=== PATIENT | female | born 1990 | race American Indian/Alaskan Native ===

== ENCOUNTER 2017-05-12 12:49 | Emergency (ER) | payer MEDICAID ==
[2017-05-12] MEDS ORDERED: MOTRIN PO ONE (16:47)
--- NOTE | 2017-05-12 16:48 | Emergency Department Report ---
Abscess Boil HPI - HPI Chief Complaint: Skin/Abscess/Foreign Body Stated Complaint: BUMP ON BUTTOCKS Time Seen by Provider: 05/12/17 16:32 Duration: 3 Days Location: Other (buttock) Severity: Moderate History: Yes Pain, Yes Purulent Drainage, No Fever, No Numbness, No Foreign Body , No Previous History, No Insect Bite HPI: 26-year-old female past medical history none presents with complaint of left buttock abscess for 3-4 days. Denies fever, chills. she states she has seen swelling and redness of her skin on her left buttock. Denies any other symptoms. Denies any difficulty defecating no nausea or vomiting. Home Medications: Previous Rx's Medication Instructions Recorded Last Taken Type Nitrofurantoin [place]/M-Cryst 100 mg PO Q12HR #10 capsule 06/02/15 Unknown Rx [Macrobid] Phenazopyridine HCl [Pyridium] 200 mg PO TID #6 tablet 06/02/15 Unknown Rx metroNIDAZOLE [Flagyl TAB] 500 mg PO BID #14 tablet 06/02/15 Unknown Rx Ibuprofen [Motrin] 600 mg PO Q8H PRN #30 tablet 05/12/17 Unknown Rx Sulfamethoxazole/Trimethoprim 1 each PO BID #14 tablet 05/12/17 Unknown Rx [Bactrim DS TAB] Allergies/Adverse Reactions: Allergies Allergy/AdvReac Type Severity Reaction Status Date / Time No Known Allergies Allergy Unverified 06/02/15 12:46 ED Review of Systems ROS: Stated complaint: BUMP ON BUTTOCKS Other details as noted in HPI Constitutional: denies: chills, fever Eyes: denies: eye pain, eye discharge, vision change ENT: denies: ear pain, throat pain Respiratory: denies: cough, shortness of breath, wheezing Cardiovascular: denies: chest pain, palpitations Endocrine: no symptoms reported Gastrointestinal: denies: abdominal pain, nausea, diarrhea Genitourinary: denies: urgency, dysuria, discharge Musculoskeletal: denies: back pain, joint swelling, arthralgia Skin: denies: rash, lesions Neurological: denies: headache, weakness, paresthesias Psychiatric: denies: anxiety, depression Hematological/Lymphatic: denies: easy bleeding, easy bruising ED Past Medical Hx - Past Medical History Previous Medical History?: No - Surgical History Past Surgical History?: No - Social History Smoking Status: Current Every Day Smoker Substance Use Type: Non Opiate Pain - Medications Home Medications: Home Medications Medication Instructions Recorded Confirmed Last Taken Type Nitrofurantoin [place]/M-Cryst 100 mg PO Q12HR #10 capsule 06/02/15 Unknown Rx [Macrobid] Phenazopyridine HCl [Pyridium] 200 mg PO TID #6 tablet 06/02/15 Unknown Rx metroNIDAZOLE [Flagyl TAB] 500 mg PO BID #14 tablet 06/02/15 Unknown Rx Ibuprofen [Motrin] 600 mg PO Q8H PRN #30 tablet 05/12/17 Unknown Rx Sulfamethoxazole/Trimethoprim 1 each PO BID #14 tablet 05/12/17 Unknown Rx [Bactrim DS TAB] ED Abscess Boil Physical Exam - Exam General: Vital signs noted. No distress. Alert and acting appropriately. Size: 3 cm Exam: No Tenderness, No Fluctuance, No Surrounding Cellulites/Erythema, No Lymphangitis, No Crepitation, No Heart Murmur, No Normal Neurologic Exam, No Normal Circulation I & D Note - I & D Note I & D Note: Simple stab incision made at head of abscess. Area infiltrated with lidocaine 1% with epinephrine local anesthesia achieved, mild. Drainage from site no gauze inserted covered with 2 x 2 gauze. Minimal bleeding procedure tolerated well ED Course Vital Signs 05/12/17 14:10 Temperature 97.8 F Pulse Rate 72 Respiratory 18 Rate Blood Pressure 116/75 O2 Sat by Pulse 100 Oximetry Critical care attestation.: If time is entered above; I have spent that time in minutes in the direct care of this critically ill patient, excluding procedure time. ED Medical Decision Making - Medical Decision Making A/P: Left buttock abscess with mild surrounding cellulitis 1-borders marked, approximately 6 cm in diameter 2-abcsess incised and drained, wound culture sent 3-Motrin 600 when necessary, Bactrim short course 4-advised patient to return if abscess re-accumulates if she experiences fever chills difficulty defecating any perirectal pain any nausea or vomiting. No rectal or anal involvement on clinical exam, abscess and cellulitis in left mid buttock region ED Disposition Clinical Impression: Abscess of buttock, left Disposition: DC-01 TO HOME OR SELFCARE Is pt being admited?: No Does the pt Need Aspirin: No Condition: Stable Instructions: Abscess (ED), Abscess Incision and Drainage (ED) Prescriptions: Ibuprofen [Motrin] 600 mg PO Q8H PRN #30 tablet PRN Reason: Pain Sulfamethoxazole/Trimethoprim [Bactrim DS TAB] 1 each PO BID #14 tablet Referrals: [facility] [Outside] - 3-5 Days [facility] [Outside] - 3-5 Days Forms: Work/School Release Form(ED) Time of Disposition: 17:38
[2017-05-12 18:06] VITALS: BP 122/68
== END 2017-05-12 18:04 | disposition home or self-care (01) ==
LOC: ED 12:49
DX: L02.31 Cutaneous abscess of buttock (principal); F17.200 Nicotine dependence, unspecified, uncomplicated
CPT/HCPCS: 87076; 87116; 87186

== ENCOUNTER 2019-06-27 19:47 | Outpatient (CLI) | payer OTHER ==
[2019-06-27 22:43] VITALS: BP 116/62
== END 2019-06-27 22:30 | disposition home or self-care (01) ==
LOC: TRG 19:47
PROVIDERS: ATTEND Obstetrics & Gynecology
DX: O47.03 False labor before 37 completed weeks of gestation, third trimester (principal); Z3A.37 37 weeks gestation of pregnancy

== ENCOUNTER 2019-06-28 17:33 | Inpatient (IN) | payer OTHER ==
[2019-06-28] MEDS ORDERED: PITOCin/NS 20 UNIT/1000ML DRIP 40,000 MILLIUNITS/2,000 ML BAG IV ONE (17:42)
[2019-06-28] MEDS ORDERED: PITOCin/NS 20 UNIT/1000ML DRIP 20,000 MILLIUNITS/1,000 ML BAG IV ONE (17:56)
--- NOTE | 2019-06-28 18:21 | History and Physical Report ---
History of Present Illness Date of examination: 06/28/19 Chief complaint: Labor History of present illness: Pt is a 28yo BF EDC 07/12/19; EGA 38 0/7 weeks presents to L&D complaining of RUC's q 3-4 mins and dilated 8cms. She received care at [facility] since 11 weeks and course has been unremarkable. records are available and GBS is Negative. Past History Past Medical History: no pertinent history Past Surgical History: no surgical history Social history: no significant social history, single - Obstetrical History Expected Date of Delivery: 07/12/19 Actual Gestation: 38 Week(s) 0 Day(s) : 2 Medications and Allergies Allergies Allergy/AdvReac Type Severity Reaction Status Date / Time No Known Allergies Allergy Verified 10/20/18 20:29 Home Medications Medication Instructions Recorded Confirmed Last Taken Type Nitrofurantoin [place]/M-Cryst 100 mg PO Q12HR #10 capsule 06/02/15 Unknown Rx [Macrobid] Phenazopyridine HCl [Pyridium] 200 mg PO TID #6 tablet 06/02/15 Unknown Rx metroNIDAZOLE [Flagyl TAB] 500 mg PO BID #14 tablet 06/02/15 Unknown Rx Ibuprofen [Motrin] 600 mg PO Q8H PRN #30 tablet 05/12/17 Unknown Rx Sulfamethoxazole/Trimethoprim 1 each PO BID #14 tablet 05/12/17 Unknown Rx [Bactrim DS TAB] Chlorhexidine Gluconate [Hibiclens] 10 ml TP BID #240 liquid 10/20/18 Unknown Rx Ketorolac [Toradol] 10 mg PO Q6H PRN #15 tablet 10/20/18 Unknown Rx Mupirocin [Bactroban 2%] 15 applic TP TID #15 gm 10/20/18 Unknown Rx Review of Systems All systems: negative - Vital Signs Vital signs: Vital Signs Pulse BP 90 127/71 06/28/19 17:59 06/28/19 17:59 Temp Pulse Resp BP Pulse Ox 90 127/71 06/28/19 17:59 06/28/19 17:59 - Physical Exam Breasts: Positive: deferred Cardiovascular: Regular rate Lungs: Positive: Clear to auscultation Abdomen: Positive: normal appearance Genitourinary (Female): Positive: normal external genitalia Uterus: Positive: enlarged Extremities: Positive: normal - Obstetrical FHR: category 1 Uterine Contraction Monitor Mode: External Cervical Dilatation: 10 Cervical Effacement Percentage: 100 station: 0 Uterine Contraction Pattern: Regular Uterine Tone Measurement Phase: Contraction Uterine Contraction Intensity: Strong/Firm Results All other labs normal. Assessment and Plan - Patient Problems (1) 38 weeks gestation of Onset Date: 06/28/19 Current Visit: Yes Status: Acute Plan to address problem: A: IUP @ 38 0/7 weeks in labor P: Admit to L&D for expectant vaginal delivery
[2019-06-28] MEDS ORDERED: XYLOCAINE 2% INFILTRATI ONE (18:23)
[2019-06-28] MEDS ORDERED: BRETHINE IVP PRN (18:23)
[2019-06-28] MEDS ORDERED: BRETHINE SUB-Q PRN (18:23)
[2019-06-28] MEDS ORDERED: MINERAL OIL PO PRN (18:23)
[2019-06-28] MEDS ORDERED: BENADRYL PO PRN (18:25)
[2019-06-28] MEDS ORDERED: PHENERGAN PR PRN (18:25)
[2019-06-28] MEDS ORDERED: ZOFRAN IV PRN (18:25)
[2019-06-28] MEDS ORDERED: TUCKS PAD TP PRN (18:25)
[2019-06-28] MEDS ORDERED: TYLENOL PO PRN (18:25)
[2019-06-28] MEDS ORDERED: MILK OF MAGNESIA PO PRN (18:25)
[2019-06-28] MEDS ORDERED: DULCOLAX PR PRN (18:25)
[2019-06-28] MEDS ORDERED: PHENERGAN PO PRN (18:25)
[2019-06-28] MEDS ORDERED: LANSINOH TP PRN (18:25)
--- NOTE | 2019-06-28 18:35 | Procedure Note ---
OB Delivery Note - Delivery Date of Delivery: 06/28/19 Surgeon: ROSANGELA DEAN Estimated blood loss: 200cc - Vaginal Delivery presentation: vertex Delivery position: OA Intrapartum events: precipitous labor- <3hr Delivery induction: none Delivery augmentation: rupture of membranes Delivery monitor: external FHT, external uterine Route of delivery: Delivery placenta: spontaneous Delivery cord: 3 umbilical vessels Episiotomy: none Delivery laceration: none Anesthesia: none Delivery comments: delivered OA and placed on Mom's chest for [id number] bonding and delayed cord clamping - A at 1 minute: 8 at 5 minutes: 9 Infant Gender: Male (3063gms)
[2019-06-28] MEDS ORDERED: PITOCin/NS 20 UNIT/1000ML DRIP 20 UNITS/1,000 ML BAG IV SCH ×2 (19:00)
[2019-06-28] MEDS ORDERED: PITOCin/NS 30 UNIT/500ML 30 UNITS/500 ML BAG IV SCH (19:00)
[2019-06-28] MEDS ORDERED: LACTATED RINGERS 1,000 ML IV SCH (19:00)
[2019-06-28] MEDS ORDERED: SODIUM CHLORIDE FLUSH SYRINGE 10 ML IV NR (19:00)
[2019-06-28 19:33] LABS: Hematocrit 36.7 % (30.3-42.9); Hemoglobin 12.4 gm/dl (10.1-14.3); Mean Corpuscular HGB Conc 34 % (30-34); Mean Corpuscular Volume 86 fl (79-97); Platelet Count 287 K/mm3 (140-440); Red Blood Count 4.29 M/mm3 (3.65-5.03); Red Cell Distribution Width 14.8 % (13.2-15.2)
[2019-06-28] MEDS: NORCO 5/325 PO PRN (20:08)
[2019-06-28] MEDS: IBUPROFEN PO SCH (20:09)
[2019-06-28] MEDS: FEOSOL PO SCH (22:41)
[2019-06-28] MEDS: COLACE PO SCH (22:41)
[2019-06-29] MEDS: NORCO 5/325 PO PRN (05:28)
[2019-06-29] MEDS: IBUPROFEN PO SCH ×5 (05:44→23:00)
[2019-06-29 06:48] LABS: Hematocrit 35.1 % (30.3-42.9); Hemoglobin 11.6 gm/dl (10.1-14.3)
--- NOTE | 2019-06-29 08:54 | Progress Note ---
Assessment and Plan - Patient Problems (1) 38 weeks gestation of Onset Date: 06/28/19 Current Visit: Yes Status: Resolved (2) (normal spontaneous vaginal delivery) Onset Date: 06/29/19 Current Visit: Yes Status: Resolved Plan to address problem: A: S/P - PPD #1 Doing well P: May go home tomorrow. Subjective - Subjective Date of service: 06/29/19 Principal diagnosis: s/p - PPD #1 Interval history: Pt is feeling well without complaints. Bleeding improved. Patient reports: appetite normal, voiding normally, pain well controlled, flatus, ambulating normally, no dizzy ambulation, no nauseated : doing well, nursing well Objective - Vital Signs Latest vital signs: Vital Signs Temp Pulse Resp BP BP Pulse Ox 06/29/19 04:22 97.8 F 81 20 122/71 98 06/29/19 00:20 88 18 06/29/19 00:16 98.2 F 20 123/76 06/28/19 19:28 105 H 144/81 06/28/19 19:12 99 H 137/76 06/28/19 18:43 99 H 129/84 06/28/19 18:28 97.9 F 94 H 20 108/84 06/28/19 18:24 94 H 108/84 06/28/19 17:59 90 127/71 Intake and Output 06/28/19 06/29/19 06/29/19 22:59 06:59 14:59 Intake Total 240 Output Total 300 Balance -60 Intake: Oral 240 Output: Urine 300 Void 300 Other: Total, Intake Amount 240 Total, Output Amount 300 # Voids Void 1 Weight 84.368 kg Estimated Blood Loss 200 - Exam Abdomen: Present: normal appearance, soft Uterus: Present: normal, firm, fundal height below umbilicus Extremities: Present: normal - Labs Labs: Abnormal lab results 06/28/19 Range/Units 19:00 WBC 17.1 H (4.5-11.0) K/mm3 Laboratory Tests 06/28/19 06/28/19 06/29/19 19:00 19:00 05:57 WBC 17.1 H RBC 4.29 Hgb 12.4 11.6 Hct 36.7 35.1 MCV 86 MCH 29 MCHC 34 RDW 14.8 Plt Count 287 Blood Type B POSITIVE Antibody Screen Negative
[2019-06-29] MEDS: FEOSOL PO SCH ×2 (10:09→22:59)
[2019-06-29] MEDS: PRENATAL VITAMIN PO SCH (10:09)
[2019-06-29] MEDS: COLACE PO SCH ×2 (10:09→22:59)
[2019-06-29] MEDS ORDERED: BOOSTRIX IM ONE (18:25)
[2019-06-29] MEDS ORDERED: M-M-R II VACCINE SUB-Q ONE (18:25)
[2019-06-30] MEDS: IBUPROFEN PO SCH ×2 (05:17→17:20)
--- NOTE | 2019-06-30 09:07 | Discharge Summary ---
Providers - Providers Date of Admission: 06/28/19 18:48 Date of discharge: 06/30/19 Attending physician: ROSANGELA DEAN Primary care physician: ROSANGELA DEAN Hospitalization Reason for admission: active labor, IUP at term Delivery: Episiotomy: none Laceration: none Other procedures: none complications: none Discharge diagnosis: IUP at term delivered Bow baby: male Hospital course: Unremarkable. Condition at discharge: Good Disposition: DC-01 TO HOME OR SELFCARE - Discharge Diagnoses (1) 38 weeks gestation of Status: Resolved (2) (normal spontaneous vaginal delivery) Status: Resolved Plan - Discharge Medications Prescriptions: Ferrous Sulfate [Feosol 325 MG tab] 325 mg PO QDAY #30 tablet Ibuprofen [Motrin 600 MG tab] 600 mg PO Q6H #30 tablet Vit-Fe Fumar-FA [ Vitamin] 1 each PO QDAY #30 tablet - Provider Discharge Summary Activity: routine, no sex for 6 weeks, no heavy lifting 4 weeks, no strenuous exercise Diet: routine Instructions: routine Additional instructions: [] Smoking cessation referral if applicable(refer to patient education folder for contact #) [] Refer to [facility] Booklet Call your doctor immediately for: * Fever > 100.5 * Heavy vaginal bleeding ( >1 pad per hour) * Severe persistent headache * Shortness of breath * Reddened, hot, painful area to leg or breast * Drainage or odor from incision. * Keep incision clean and dry at all times and follow doctor's instructions regarding bathing/showering - Follow up plan Follow up: ROSANGELA DEAN MD [Primary Care Provider] - 6 Weeks STERLING SILVA CNM [Advanced Practice Nurse] - 6 Weeks
[2019-06-30] MEDS: COLACE PO SCH (10:53)
[2019-06-30] MEDS: FEOSOL PO SCH (10:54)
[2019-06-30] MEDS: NORCO 5/325 PO PRN (10:55)
[2019-06-30] MEDS: PRENATAL VITAMIN PO SCH (10:55)
[2019-06-30 17:31] VITALS: BP 122/72
== END 2019-06-30 17:30 | disposition home or self-care (01) | DRG 775 ==
LOC: TRG 17:33 → LD 17:34 → TRG 18:47 → LD 18:48 → OB 21:42
PROVIDERS: ADMIT Obstetrics & Gynecology; ATTEND Obstetrics & Gynecology
PROC: 10E0XZZ Delivery of Products of Conception, External Approach (ICD-10-PCS; principal; 2019-06-28)
DX: O62.3 Precipitate labor (principal); Z37.0 Single live birth; Z3A.38 38 weeks gestation of pregnancy
CPT/HCPCS: 36415; 85014; 85018; 85027; 86592; 86850; 86900; 86901; G0378; J2590